=== PATIENT | female | born 1980 | race Caucasian/White ===

== ENCOUNTER 2017-05-17 08:30 | Inpatient (IN) | payer OTHER ==
[~2017-05-17] VITALS: Ht 165.1 cm; Wt 84.8 kg
[~2017-05-17 08:30] MED LIST: LEVOTHYROXINE137 MCG PO; VITAMIN B-121000 MC3 PO; VITAMIN D1000 UNIT PO
--- NOTE | 2017-05-22 23:50 | History & Physical ---
General Information and HPI MD Statement: I have seen and personally examined VIDHI FIGUEROA and documented this H&P. The patient is a 37 year old female at 38 weeks and 6 days gestation who presented with a chief complaint of SROM. Source of Information: patient, old records Exam Limitations: no limitations History of Present Illness: Patient contacted marketing underwriter at [phone] on 05/22/17 with complaints of rupture of fluid clear within the preceeding hour. She denies vaginal bleeding and denied pain. She discussed that she wishes a vaginal trial of labor given history of csection. Allergies/Medications Allergies: Coded Allergies: No Known Allergies (06/12/15) Home Med list Cholecalciferol (Vitamin D3) (Vitamin D) (Unknown Strength) TABLET (Unknown Dose) PO DAILY SUPPLEMENT (Reported) Cyanocobalamin (Vitamin B-12) (Unknown Strength) TABLET (Unknown Dose) PO DAILY SUPPLEMENT (Reported) Levothyroxine Sodium 137 MCG TABLET 1 TAB PO DAILY AC THYROID (Reported) Compliance With Home Meds: GOOD Past History assistant program director History : 3 Para: 1 Last Menstrual Period: 08/28/16 Estimated Delivery Date: 05/30/17 Past assistant program director History: Previous csection for NRFS at term Past Pregnancies Past Pregnancies: Date of Delivery: 02/23/13 Gestational Age: 39 Weight: 8lb1oz Type of Delivery: Anesthesia: Epidural Place of Delivery: [facility] Complications: None Medical History Blood Transfusion Hx: No Neurological: NONE EENT: NONE Cardiovascular: NONE Respiratory: NONE Gastrointestinal: NONE Hepatic: NONE Renal: NONE Musculoskeletal: NONE Psychiatric: NONE Endocrine: hypothyroidism Blood Disorders: NONE Cancer(s): NONE SUPERINTENDENT PRODUCTION/Reproductive: Other Medical Hx: None Surgical History Pertinent Surgical History: Past Family/Social History Psychosocial History Where do you live? Home Who Do You Live With? spouse, child Primary Language: Yi Smoking Status: Former Smoker ETOH Use: denies use Illicit Drug Use: denies illicit drug use Living Will? unknown Power of Core Mounter/HCP? unknown Other Social History: NA Employment History Employment Employed Review of Systems Review of Systems Constitutional: Denies: no symptoms. EENTM: Denies: no symptoms. Cardiovascular: Denies: no symptoms. Respiratory: Denies: no symptoms. GI: Denies: no symptoms. Genitourinary: Denies: no symptoms. Musculoskeletal: Denies: no symptoms. Skin: Denies: no symptoms. Neurological/Psychological: Denies: no symptoms. Hematologic/Endocrine: Denies: no symptoms. Immunologic/Allergic: Denies: no symptoms. All Other Systems: Reviewed and Negative Date of LMP: 08/28/16 Post Menopausal: No Date of Last Pap Smear: 10/20/16 Exam & Diagnostic Data Last 24 Hrs of Vital Signs/I&O Per paper record Obstetric Exam Wgt Gained During : 34 Pelvimetry: Gynecoid Dilation (cm): 1 Effacement (%): 90 Station: -1 Membranes: SROM Fluid: clear Fundal Height (cm): 38 Multiple Gestation? No Contractions: Irregular q 2-5 Infant #1 - FHR Baseline: 140 Category: 1 Estimated Weight: 3054 grams Presentation: Cephalic Patient for Induction? No (If no spontaneous labor than y) Bell Score Bell Score Response Value Cervix Position: posterior 0 Cervix Consistency: soft 2 Cervix Effacement: >80% 3 Cervix Dilation: 1-2 cm 1 Cervix Station: -1 2 Total 8 Physical Exam General Appearance Alert, Oriented X3, Cooperative, No Acute Distress Skin No Rashes HEENT Atraumatic Neck Supple Cardiovascular Regular Rate, Normal S1, Normal S2 Lungs Clear to Auscultation, Normal Air Movement Abdomen Normal Bowel Sounds, Soft Neurological Normal Gait, Normal Speech, Strength at 5/5 X4 Ext, Normal Tone, Sensation Intact, Cranial Nerves 3-12 NL, Reflexes 2+ Extremities No Edema Vascular Normal Pulses, Pulses Symmetrical Breasts Breast appear nl Reproductive (FEMALE) Normal female genitalia Pelvic (FEMALE) Appearance Normal Labs Blood Type & Rh: O negative Antibody Screen: negaitve Hct/Hgb & Platelets #1: 37.3 Hct/Hgb & Platelets #2: 32.6/235 Rubella: immune VDRL #1: negative VDRL #2: negative HbsAg: negative HIV #1: negative HIV #2 NA 1 Hr P Group B Strep: negative Initial Ultrasound: Negative per patient Anatomy Ultrasound: Normal per patient Ultrasound for EFW: NA Genetic Testing: Nl per patient Last 24 Hrs of Labs/Gallo: Laboratory Tests 05/22/17 2330: CBC w Diff Pending, WBC Pending, RBC Pending, Hgb Pending, Hct Pending, MCV Pending, MCH Pending, MCHC Pending, RDW Pending, Plt Count Pending, MPV Pending, HIV 1&2 Ab Western Blot Pending, Urine Color Pending, Urine Clarity Pending, Urine pH Pending, Ur Specific [place] Pending, Urine Protein Pending, Urine Ketones Pending, Urine Nitrite Pending, Urine Bilirubin Pending, Urine Urobilinogen Pending, Ur Leukocyte Esterase Pending, Ur Microscopic Pending, Urine Hemoglobin Pending, Urine Glucose Pending ITS Data Other Results BPD 8.9 AC 33 FL 7.78 Composite weight 3054 grams Cephalic presentation MVP 2.56 Fundal right placenta BPP 8/ Assessment/Plan Assessment/Plan: Patient is a Para 1 at [id number] with complicated by AMA and history of csection and now with PROM. Clear fluid noted. status reassuring and gynecoid pelvis in early labor. Patient with hypothyroidism that is controlled and she is Rh negative. Received rhogam and flu shot but not tdap. I discussed with the patient that her success of at present by Grobman calculator is appx 61.5%. She had previous for NRFS at time of induction. She is amenable for trial of labor and a good candidate in my opinion. Risks of being pain, abnromal heart rate, failure requiring csection, uterine rupture (1/200). Benefits being reduced recovery time, less infection and improved bonding. If persistant catagory 2 tracing noted and fails to improve with resucitation than csection indicated. If fails to progress than same. Oxytocin to be started by 0600 on 05/23/17 if fails to enter active labor. Risks of rupture may increase with oxytocin but it is standard of care and patient may require IUPC for improved monitoring of ctx pattern. Type and cross x 2 units VTE risk mitigation with alps IV access obtained but may walk at present until active labor ensues. Clear fluid allowed. She was counseled on forms of pain mgmt for labor and I obtained consent for nitrous oxide and we discussed epidural as well. Ample time for questions provided to patient Care plan reviewed with Nursing. As Ranked By This Provider Problem List: 1. Premature rupture of membranes 2. Hypothyroidism affecting Core Measures Venous Thromboembolism VTE Risk Factors / No Mechanical VTE Prophylaxis d/t N/A MechProphylax Ordered No VTE Pharm Prophylaxis d/t NA PharmProphylax ordered Attending Review Statement Attending Statement Attending MD Statement: examined this patient
[2017-05-23 00:06] LABS: ABSOLUTE BASOPHIL COUNT 0 /CUMM (0.0-0.2); ABSOLUTE EOSINOPHIL COUNT 0.1 /CUMM (0.0-0.7); ABSOLUTE GRANULOCYTE CT 6.5 /CUMM (1.4-6.5); ABSOLUTE LYMPH COUNT 1.6 /CUMM (1.2-3.4); ABSOLUTE MONOCYTE COUNT 0.9 /CUMM (0.10-0.60); BASOPHIL % 0.4 % (0.0-2.0); EOSINOPHIL % 1.2 % (0-5); GRANULOCYTE % 71.2 % (42.2-75.2); HEMATOCRIT 35.6 % (37-47); MEAN CORPUSCULAR HGB 29.8 PG (27.0-31.0); MEAN CORPUSCULAR HGB CONC 33.7 G/DL (33.0-37.0); MEAN CORPUSCULAR VOLUME 88.5 FL (81.0-99.0); MEAN PLATELET VOLUME 9.3 FL (7.4-10.4); PLATELET COUNT 197 /CUMM (130-400); RBC DISTRIBUTION WIDTH 15.8 % (11.5-14.5); RED BLOOD CELL CT 4.02 /CUMM (4.20-5.40); WHITE BLOOD CELL COUNT 9.1 /CUMM (4.8-10.8)
--- NOTE | 2017-05-23 09:32 | PN- OBGYN ---
Surgical Brief Attending Note Brief Attending Note: Seen and evaluated BP 114/68 Afebrile. States now feeling the contractions Slept intermittent last night VE deferred Catagory 1 tracing Oxytocin at 1 cc per hour Hct 35.6 Platetels 197 O negative in Blood bank HD #1 for this female at 39 weeks with PROM and history of one previous csection. Now being induced for same as didnt enter active labor. Alps for vte risk reduction When greater than [address] IUPC for monitoring of contraction pattern. Pain mgmt on pt request. Anticipate . PPH precautions as on oxytocin
--- NOTE | 2017-05-23 12:53 | PN- OBGYN ---
Surgical Brief Attending Note Brief Attending Note: S/p epidural AVSS Catagory 1 tracing Ctx q2-3 VE 4-5/100/-1 No molding Oxytocin at 3 cc per hour. Now in active labor IUPC placed for better contraction monitoring Comfortable with epidural Anticipate Most likely when reaches 8 cm to dc the oxytocin.
--- NOTE | 2017-05-23 15:21 | PN- OBGYN ---
Surgical Brief Attending Note Brief Attending Note: Called to room secondary to deceleration Recovered upon my arrival Oxytocin off. Previous was Catagory 1. Then prolonged deceleration x 3 minutes with recovery and now Catagory 1 Changed from 4-5 to now 7 cm. Blood was noted however no change in station and no change in resting tone of uterus. No pain at scar site noted either. Most likely to be blood show. Oxytocin to be held Urine output good BP is normal Allow spontaneous labor and anticipate . Discussed care with Nursing and patient. Reassess at 5 pm for cervical change.
--- NOTE | 2017-05-23 16:28 | PN- OBGYN ---
Surgical Brief Attending Note Brief Attending Note: Patient was reexamined Vitals 124/70 Abdomen soft in between contractions And oxytocin was on hold and baseline tone of 0. 7/100/-1 Old blood in vault. Catagory 1-2 tracing occasional variable decelerations but moderate variability. To proceed with repeat csection for failed labor induction. 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 Consent obtained for surgery and risks being pain, bleeding, infection, vte, anesthesia complications, small bowel obstruction and or ileus. Surgical prophylaxis with kefzol. Discussed pain mgmt postoeperatively and discused vte prevention. Cord gases to be done. Team called in being Stacy Rogel and Anesthesiology.
--- NOTE | 2017-05-23 18:37 | Operative Report ---
Operative/Inv Procedure Report Surgery Date: 05/23/17 Name of Procedure: Repeat LTCS #2 Pre-Operative Diagnosis: previous csection prom arrest of dilatation Post-Operative Diagnosis: same Estimated Blood Loss: 1000 Surgeon/Furniture Repairer: Gino Chacon Anesthesia: Epidural Monitors: Per Anesthesiology IV Fluids: 1300 Urine Output: 375 Drains: none Specimens: cord gases Microbiology: urine culture Complications: none Condition: stable to RR Operative Indication: 37 year old female with previous csection and PROM and arrest of dilation at 7 cm. Consent obtained and risks of procedure outlined to patient. Benefits of same outlined to patient. Operative/Procedure Note Note: Taken to OR and prepped in usual fashion Antibiotics given prior to incision Time out done per protocol Repeat incision made with scalpel and carried through to underlying fascia. It was incised in midline and extended using bovie. Fascia was dissected superiorly and inferiorly. Peritoneum was entered and adhesion noted. Peritoneum dissected bluntly superiorly and inferiorly. Bladder flap created and displaced caudally. Uterine incision made and noted cord prior to being delivered. Female apgars 9 and 9. Corporal cord x 2 but not tight. Gases sent. Placenta delivered and was intact and 3 vessel cord and uterotonics given ( oxytocin and methergine). Uterus displaced and two layer closure with 0 vicryl used. Good hemostasis noted Kendy applied to hysterotomy site. Uterus once back in abdomen and abdomen irrigated. Peritoneum closed with 2-0 vcryl. Fascia closed with 0 vicryl and subcutaneous tissue reapproximated with 3-0 plain and stapled to skin. Normal uterus tubes and ovaries and no myomas appreciated. Urine clear at end of procedure. To get COURT OFFICER as nonfunctional epidural per Anesthesiology. Findings: Female Mild adhesions of bladder to uterus and band of adhesion from anterior abdominal wall to lower segment on the left. Agpars 9 and 9. Discharge Disposition: RR in CBC Additional Comments: Peds Dr Kumar evaluated . CC: Hector JESSICA,Radha Mak
--- NOTE | 2017-05-24 07:45 | PN- Post Delivery/GYN ---
Subjective Subjective: NO COMPLAINTS Objective Last 24 Hrs of Vital Signs/I&O PER PAPER CHART Physical Exam: PE THIN WF IN NAD ABD SOFT NT INCISION CDI EXT -EDEMA FUNDUS FIRM NT LOCHIA MINIMAL Assessment/Plan Assessment/Plan ASSESS S/P TOLAC C/S PLAN CONT PPC
[2017-05-24 08:25] LABS: ABSOLUTE BASOPHIL COUNT 0 /CUMM (0.0-0.2); ABSOLUTE EOSINOPHIL COUNT 0.1 /CUMM (0.0-0.7); ABSOLUTE GRANULOCYTE CT 15.7 /CUMM (1.4-6.5); ABSOLUTE LYMPH COUNT 0.7 /CUMM (1.2-3.4); ABSOLUTE MONOCYTE COUNT 1.1 /CUMM (0.10-0.60); BASOPHIL % 0.1 % (0.0-2.0); EOSINOPHIL % 0.4 % (0-5); GRANULOCYTE % 89.1 % (42.2-75.2); HEMATOCRIT 30.8 % (37-47); MEAN CORPUSCULAR HGB 30.2 PG (27.0-31.0); MEAN CORPUSCULAR HGB CONC 33.7 G/DL (33.0-37.0); MEAN CORPUSCULAR VOLUME 89.5 FL (81.0-99.0); MEAN PLATELET VOLUME 8.9 FL (7.4-10.4); PLATELET COUNT 154 /CUMM (130-400); RBC DISTRIBUTION WIDTH 16.2 % (11.5-14.5); RED BLOOD CELL CT 3.44 /CUMM (4.20-5.40)
[2017-05-24 09:38] LABS: WHITE BLOOD CELL COUNT 17.7 /CUMM (4.8-10.8)
[2017-05-25 01:28] LABS: ABSOLUTE BASOPHIL COUNT 0 /CUMM (0.0-0.2); ABSOLUTE EOSINOPHIL COUNT 0.1 /CUMM (0.0-0.7); ABSOLUTE GRANULOCYTE CT 17.3 /CUMM (1.4-6.5); ABSOLUTE MONOCYTE COUNT 1.1 /CUMM (0.10-0.60); BASOPHIL % 0 % (0.0-2.0); EOSINOPHIL % 0.4 % (0-5); GRANULOCYTE % 88.6 % (42.2-75.2); HEMATOCRIT 29.3 % (37-47); MEAN CORPUSCULAR HGB 30.1 PG (27.0-31.0); MEAN CORPUSCULAR HGB CONC 33.7 G/DL (33.0-37.0); MEAN CORPUSCULAR VOLUME 89.5 FL (81.0-99.0); MEAN PLATELET VOLUME 8.9 FL (7.4-10.4); PLATELET COUNT 220 /CUMM (130-400); RBC DISTRIBUTION WIDTH 16.3 % (11.5-14.5); RED BLOOD CELL CT 3.27 /CUMM (4.20-5.40); WHITE BLOOD CELL COUNT 19.6 /CUMM (4.8-10.8)
[2017-05-26] MEDS ORDERED: IBUPROFEN800 M1 PO (09:17)
[2017-05-26] MEDS ORDERED: PERCOCET 5-3251 EACH PO (09:17)
--- NOTE | 2017-05-26 09:21 | PN- Post Delivery/GYN ---
Subjective Subjective: NO COMPLAINTS Objective Last 24 Hrs of Vital Signs/I&O NEGATIVE TEMPS Physical Exam: THIN WF IN NAD HEENT PERRLA ABD SOFT NT FUNDUS FIRM NT LOCHIA MINIMAL EXT -EDEMA-HOMANS Assessment/Plan Assessment/Plan ASSESS S/PC/S E NDOMETRITIS PLAN D/C HOME
== END 2017-05-26 11:41 | DRG 766 ==
LOC: LAB 08:30 → GNO 05-22 22:31
PROVIDERS: Obstetrics & Gynecology
PROC: 10D00Z1 Extraction of Products of Conception, Low, Open Approach (ICD-10-PCS; principal; 2017-05-23)
PROC: 10H07YZ Insertion of Other Device into Products of Conception, Via Natural or Artificial Opening (ICD-10-PCS; 2017-05-23)
PROC: 3E033VJ Introduction of Other Hormone into Peripheral Vein, Percutaneous Approach (ICD-10-PCS; 2017-05-23)
DX: O42.02 Full-term premature rupture of membranes, onset of labor within 24 hours of rupture (principal); E03.9 Hypothyroidism, unspecified; O76 Abnormality in fetal heart rate and rhythm complicating labor and delivery; O61.0 Failed medical induction of labor; N85.8 Other specified noninflammatory disorders of uterus; O62.1 Secondary uterine inertia; O99.284 Endocrine, nutritional and metabolic diseases complicating childbirth; O34.211 Maternal care for low transverse scar from previous cesarean delivery; Z3A.39 39 weeks gestation of pregnancy; Z37.0 Single live birth; Z87.891 Personal history of nicotine dependence
CPT/HCPCS: GNOP; GNOS; 36415; 81003; 84112; 87040; 87086; 87389; 87804; 87804-59; J0131; J0290; J0690; J1580; J1885; J2175; J2210; J2790; J7120